=== PATIENT | female | born 1995 ===

== ENCOUNTER 2017-04-08 20:46 | Emergency (ER) | payer BC ==
--- NOTE | 2017-04-08 21:44 | C.PDOC ---
History Of Present Illness Carol Ann Hall is a 21 y/o female w/o significant PMHx presenting to the ER for evaluation of suprapubic pain gradually developing since this morning. Pain is associated with urinary frequency and discomfort. Patient also complaining of cold symptoms with runny nose and sore throat. Otherwise, pt denies fever, chills, headache, dizziness, drooling, dysphagia, dyspnea, cough, N/V, hematuria , vaginal irritation or discharges, back pain, denies previous hx of STD. Ambulate to ED for evaluation, not in any apparent distress. Time Seen by Provider: 04/08/17 21:21 Chief Complaint (Nursing): Female Genitourinary History Per: Patient History/Exam Limitations: no limitations Onset/Duration Of Symptoms: Days (x 1) Current Symptoms Are (Timing): Still Present Associated Symptoms: Urinary Symptoms Past Medical History Reviewed: Historical Data, Nursing Documentation, Vital Signs Vital Signs: Last Vital Signs Temp 97.9 F 04/08/17 21:15 Pulse 91 H 04/08/17 21:15 Resp 20 04/08/17 21:15 BP 115/76 04/08/17 21:15 Pulse Ox 99 04/08/17 21:47 - Medical History PMH: Anxiety Other Surgeries: Ureter repositioning Family History: States: Unknown Family Hx - Social History Hx Alcohol Use: Yes Hx Substance Use: Yes - Immunization History Hx Tetanus Toxoid Vaccination: No Hx Influenza Vaccination: No Hx Pneumococcal Vaccination: No Review Of Systems Constitutional: Negative for: Fever, Chills ENT: Positive for: Nose Discharge, Throat Pain Gastrointestinal: Positive for: Abdominal Pain (suprapubic) Genitourinary: Positive for: Dysuria, Frequency Musculoskeletal: Negative for: Back Pain Physical Exam - Physical Exam Appears: Well, Non-toxic, No Acute Distress Skin: Normal Color, Warm, Dry, No Rash Head: Normacephalic Eye(s): bilateral: PERRL Nose: Discharge (congestion B/L) Oral Mucosa: Moist, No Drooling, No Trismus Tongue: Normal Appearing Lips: Normal Appearing Throat: Erythema (mod B/L), No Exudate, No Drooling Neck: Trachea Midline, Supple Cardiovascular: Rhythm Regular Respiratory: No Decreased Breath Sounds, No Accessory Muscle Use, No Stridor, No Wheezing Gastrointestinal/Abdominal: No Soft, Tenderness (suprapubic, mod), No Distention , No Guarding, No Rebound, No Hernia Back: No CVA Tenderness Extremity: Normal ROM, No Deformity, No Swelling ED Course And Treatment - Laboratory Results Urine POC: Negative O2 Sat by Pulse Oximetry: 99 (RA) Pulse Ox Interpretation: Normal Progress Note: On re-eval, pt is afebrile, hemodynamicaly stable. Non-toxic, tolerate po well in ED. PulseOx 99% RA. ENT: no acute findings, uvula midline , no edema. neck: Supple, (-) meningeal sign. Lungs: CTA B/L, BS equal B/L. Abd: benign, (-) guaridng, (-) rebound. Back: (-) CVA tenderness. UA results review and c/w UTI. Ucx-pending. Pt has clinical findings c/w UTI, viral illness. Parent advised and ref. to F/u with PMD in 2-3 days for re- evaluation. return to ED if any worsening or new changes. Disposition Counseled Patient/Family Regarding: Studies Performed, Diagnosis, Need For Followup, Rx Given - Disposition Referrals: [facility] [Outside] Disposition: HOME/ ROUTINE Disposition Time: 21:40 Condition: STABLE Additional Instructions: ENCOURAGE FLUIDS TAKE MEDICATION PRESCRIBED FOLLOW UP WITH PMD IN 2-3 DAYS FOR RE-EVALUATION. RETURN TO ED IF ANY WORSENING OR NEW CHANGES. 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 - Scribe Statement The provider has reviewed the documentation as recorded by the Scribe (Mago Mistry) All medical record entries made by the Scribe were at my direction and personally dictated by me. I have reviewed the chart and agree that the record accurately reflects my personal performance of the history, physical exam, medical decision making, and the department course for this patient. I have also personally directed, reviewed, and agree with the discharge instructions and disposition.
[2017-04-08 21:59] LABS: RBC URINE 41 /hpf (0-3); URINE BILIRUBIN NEGATIVE (NEGATIVE); URINE BLOOD 1+ (NEGATIVE); URINE COLOR Yellow (YELLOW); URINE GLUCOSE (UA) NORMAL (Normal); URINE KETONE NEGATIVE (NEGATIVE); URINE LEUKOCYTE ESTERASE 3+ Leu/uL (Negative); URINE PROTEIN NEGATIVE (NEGATIVE); URINE UROBILINOGEN NORMAL mg/dL (0.2-1.0); WBC URINE 181 /hpf (0-5)
[2017-04-08 22:35] VITALS: BP 106/69; PULSE 88; RESP 17; TEMP 97.8; O2SAT 98
== END 2017-04-08 22:54 | disposition home or self-care (01) ==
LOC: C.ER 20:46
DX: N39.0 Urinary tract infection, site not specified (principal); B34.9 Viral infection, unspecified